=== PATIENT | male | born 1960 | race Caucasian/White ===

== ENCOUNTER 2017-03-10 09:31 | Day surgery (SDC) | payer OTHER ==
[~2017-03-10 09:31] MED LIST: ST JTAB PO
[2017-03-10] MEDS ORDERED: CHLORHEXIDINE GLUCONATE 2 % 1 PACK (2 CLOTHS) TOPICAL SCH (10:00)
[2017-03-10] MEDS ORDERED: POVIDONE IODINE 5% (ANTISEPSIS KIT) 4 APPLICATIONS EACH NARE SCH (10:00)
[2017-03-10] MEDS ORDERED: MUPIROCIN 2% OINT 1 APPLIC/GM SYR NASAL SCH (10:00)
[2017-03-10] MEDS ORDERED: ceFAZolin 2 GM PREMIX 50 ML IV SCH (10:00)
[2017-03-10] MEDS ORDERED: ASPI1TAB69 PO (10:18)
[2017-03-10] MEDS ORDERED: MIDAZOLAM HCL 2 MG/2 ML VIAL ONE ×2 (12:06→12:15)
[2017-03-10] MEDS ORDERED: LIDOCAINE HCL 2% 50 ML VIAL ONE (12:28)
[2017-03-10] MEDS ORDERED: VANCOMYCIN 500 MG VIAL ONE (12:28)
--- NOTE | 2017-03-12 19:31 | MP ---
cc: ANDREINA DAWN DATE OF SURGERY March 10, 2017 INDICATION History of Medtronic LINQ loop monitor placement, history of transient ischemic attack. PROCEDURE 1. Explantation of Med[employer]onic LINQ Reveal loop monitor. 2. Moderate sedation. PROCEDURE After the patient was prepped and draped in the usual sterile manner, local anesthesia was administered to the left upper chest. The patient was given IV Versed and Fentanyl for sedation. Medtronic Reveal LINQ loop monitor was accessed from 1 cm incision in the left subclavicular area. The loop was explanted without difficulties. The wound was closed in layers using absorbable sutures. The patient was transferred to the [facility] in stable condition. DIAGNOSES Successful explantation of Medtronic Reveal LINQ monitor. DISPOSITION Mr. Payan will continue his current medical program. He will be discharged home later today. I will see him back for followup in our office after discharge. Andreina Dawn MD OMagdiel/KK /1:20 PM /7:25 PM CARMELA
== END 2017-03-10 14:30 | disposition home or self-care (01) ==
LOC: HDOC 09:31 → HDIC 09:31 → HDOC 14:30
PROVIDERS: ATTEND Internal Medicine Interventional Cardiology
DX: Z45.09 Encounter for adjustment and management of other cardiac device (principal); I48.91 Unspecified atrial fibrillation; Z86.73 Personal history of transient ischemic attack (TIA), and cerebral infarction without residual deficits
CPT/HCPCS: 33284; J0690; J2250; J3010; J3370